=== PATIENT | male | born 1955 | race Caucasian/White ===

== ENCOUNTER 2018-06-20 08:36 | Emergency (ER) | payer OTHER ==
[~2018-06-20] VITALS: Ht 188 cm; Wt 100.0 kg
[~2018-06-20 08:36] MED LIST: ATOR20TA38 PO; HYDR2TAB36 PO; RANI150T5 PO; TAMS-14 PO
[2018-06-20 08:47] VITALS: Ht 188 cm; Wt 100.0 kg
--- NOTE | 2018-06-20 09:10 | ERD ---
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 Patient reports that yesterday he began experiencing mild, crampy and achy left flank pain radiates to the left lower quadrant similar to his previous episodes of renal colic. Mild dysuria and "dark urine" but no polyuria or hematuria. Denies abdominal pain, nausea, vomiting, diarrhea or constipation. No hematemesis, hematochezia or melena. Today he stood up in his cell and walks several feet ROS All systems reviewed and are negative except as per history of present illness. Medications Home Meds Active Scripts Ibuprofen* (Motrin*) 600 Mg Tab, 600 MG PO Q6 PRN for PAIN LEVEL 1-5, #20 TAB Prov:VITALIY JORDAN MD 06/20/18 Ciprofloxacin Hcl* (Ciprofloxacin Hcl*) 500 Mg Tablet, 500 MG PO BID for 7 Days, TAB Prov:VITALIY JORDAN MD 06/20/18 Reported Medications Oxycodone HCl/Acetaminophen (Oxycodone-Acetaminophen 10-325) 1 Each Tablet, 1 EACH PO NEEDED, TAB 06/20/18 Discontinued Reported Medications Tamsulosin Hcl* (Flomax*) 0.4 Mg Cap.er.24h, 0.4 MG PO HS, CAP 01/19/15 Atorvastatin Calcium* (Atorvastatin Calcium*) 20 Mg Tablet, 20 MG PO HS, TAB 01/19/15 Ranitidine Hcl* (Ranitidine Hcl*) 150 Mg Tablet, 150 MG PO Q12, TAB 01/19/15 Discontinued Scripts Hydromorphone Hcl* (Dilaudid*) 2 Mg Tablet, 2 MG PO Q6H PRN for PAIN, #10 TAB Prov:TRUDY MONCADA MD 01/19/15 Hydromorphone Hcl* (Dilaudid*) 2 Mg Tablet, 1 MG PO Q6H PRN for PAIN, #10 TAB Prov:TRUDY MONCADA MD 01/19/15 Allergies Allergies: Coded Allergies: Sulfa (Sulfonamide Antibiotics) (Verified Allergy, Unknown, 06/20/18) sulfamethoxazole (Verified Allergy, Unknown, 06/20/18) trimethoprim (Verified Allergy, Unknown, 06/20/18) PMhx/Soc History of Surgery: Yes (LITHITROPSY, INGUINAL HERNIA REPAIR) Anesthesia Reaction: No Hx Neurological Disorder: No Hx Respiratory Disorders: No Hx Cardiac Disorders: No Hx Psychiatric Problems: No Hx Miscellaneous Medical Probl: Yes (MRSA, KIDNEY STONES ) Hx Alcohol Use: No Hx Substance Use: No Hx Tobacco Use: Yes Smoking Status: Current some day smoker Physical Exam Vitals Vital Signs Date Temp Pulse Resp B/P (MAP) Pulse Ox O2 O2 Flow FiO2 Time Delivery Rate 06/20/18 97.5 74 18 131/79 98 08:47 (96) Physical Exam Const: No acute distress Head: Atraumatic Eyes: Normal Conjunctiva ENT: Normal External Ears, Nose and Mouth. Neck: Full range of motion. No meningismus. Resp: Clear to auscultation bilaterally Cardio: Regular rate and rhythm, no murmurs Abd: Soft, non tender, non distended. Normal bowel sounds Skin: No petechiae or rashes Back: No midline or flank tenderness Ext: No cyanosis, or edema Neur: Awake and alert Psych: Normal Mood and Affect Result Diagram: 06/20/18 0940 06/20/18 0939 Results 24 hrs Laboratory Tests Test 06/20/18 09:39 06/20/18 09:40 Urine Color YELLOW Urine Clarity SLIGHTLY CLOUDY Urine pH 6.0 Urine Specific [place] 1.020 Urine Ketones TRACE mg/dL Urine Nitrite NEGATIVE mg/dL Urine Bilirubin NEGATIVE mg/dL Urine Urobilinogen NEGATIVE mg/dL Urine Leukocyte Esterase TRACE Les/ul Urine Microscopic RBC 112 /HPF Urine Microscopic WBC 16 /HPF Urine Bacteria FEW /HPF Urine Hemoglobin 3+ mg/dL Urine Glucose NEGATIVE mg/dL Urine Total Protein NEGATIVE mg/dl Sodium Level 140 mmol/L Potassium Level 4.5 mmol/L Chloride Level 104 mmol/L Carbon Dioxide Level 29 mmol/L Anion Gap 7 Blood Urea Nitrogen 25 mg/dl Creatinine 1.31 mg/dl Est Glomerular Filtrat Rate mL/min 55 mL/min Glucose Level 91 mg/dl Calcium Level 11.0 mg/dl Troponin I < 0.012 ng/ml White Blood Count 9.4 10^3/ul Red Blood Count 5.66 10^6/ul Hemoglobin 16.3 g/dl Hematocrit 50.1 % Mean Corpuscular Volume 88.5 fl Mean Corpuscular Hemoglobin 28.8 pg Mean Corpuscular Hemoglobin Concent 32.5 g/dl Red Cell Distribution Width 12.5 % Platelet Count 233 10^3/UL Mean Platelet Volume 10.0 fl Immature Granulocytes % 0.100 % Neutrophils % 64.9 % Lymphocytes % 23.9 % Monocytes % 9.2 % Eosinophils % 1.5 % Basophils % 0.4 % Nucleated Red Blood Cells % 0.0 /100WBC Immature Granulocytes # 0.010 10^3/ul Neutrophils # 6.1 10^3/ul Lymphocytes # 2.2 10^3/ul Monocytes # 0.9 10^3/ul Eosinophils # 0.1 10^3/ul Basophils # 0.0 10^3/ul Nucleated Red Blood Cells # 0.0 10^3/ul Current Medications Medications Dose Sig/Mike Start Time Status Last (Trade) Ordered Route PRN Stop Time Admin Dose Reason Admin Ketorolac 15 mg ONCE STAT 06/20/18 DC 06/20/18 Tromethamine IV 09:16 06/20/18 09:43 (Toradol) 09:20 Procedures/MDM DOCUMENTS REVIEWED: ED nurse, EMS report LAB INTERPRETATION: [] EKG: Time: 10:57. Sinus rhythm. Ventricular rate 71. Normal ND and QRS. Incomplete right bundle branch block. No acute ST segment elevation or depression. No ectopy. My Interpretation IMAGING: PROCEDURE: US aorta. CLINICAL INDICATION: Screening for aortic aneurysm TECHNIQUE: Multiple sonographic images of the aorta and iliac vessels was obtained utilizing grayscale, color-flow, compressive sonography and doppler imaging. The images were reviewed on a PACS workstation. COMPARISON: None. FINDINGS: The aorta is normal in caliber with no evidence of abdominal aortic aneurysm. The study is limited due to overlying bowel gas. The proximal aorta measures 1.8 cm. The mid aorta measures 1.6 cm. The distal aorta measures 1.4 cm. The iliac vessels not seen. RPTAT: AA IMPRESSION: No evidence of abdominal aortic aneurysm. .Glenn Banerjee MD, MD Date Time Electronically viewed and signed by .Glenn Banerjee MD, MD on 06/20/2018 10:19 .S/ ED COURSE: [] REEXAMINATION/REEVALUATION: Time: 12:40 MEDICAL DECISION MAKING: []. Stable for discharge with precautionary instructions and outpatient follow-up as counseled. Counseled patient[ and family] regarding diagnostic workup, diagnosis and need for followup. Understands to return to ED if symptoms recur, worsen or any other concerns. Departure Diagnosis: Primary Impression: Syncope, vasovagal Additional Impressions: Left flank pain, chronic H/O renal calculi UTI (urinary tract infection) Urinary tract infection type: acute cystitis Hematuria presence: with hematuria Qualified Codes: N30.01 - Acute cystitis with hematuria Condition: Stable VITALIY JORDAN MD June 20, 2018 09:10
[2018-06-20] MEDS ORDERED: KETOROLAC 15 MG INJ IV STA (09:16)
[2018-06-20] MEDS ORDERED: OXYC-431 PO (12:20)
[2018-06-20] MEDS ORDERED: IBUP-1542 PO (13:06)
[2018-06-20] MEDS ORDERED: CIPR500T4 PO (13:06)
[2018-06-20 13:17] VITALS: BP 124/77; PULSE 72; RESP 20
[2018-06-20] MEDS ORDERED: CIPROFLOXACIN 500 MG TAB PO ONE (13:30)
[2018-06-20] MEDS ORDERED: traMADol 50 MG TAB PO ONE (13:30)
== END 2018-06-20 13:19 ==
LOC: E/R 08:36
DX: R55 Syncope and collapse (principal); F17.210 Nicotine dependence, cigarettes, uncomplicated; N30.01 Acute cystitis with hematuria; Z87.442 Personal history of urinary calculi
CPT/HCPCS: 36415; 76775; 80048; 81001; 84484; 85025; 96374; 99285; J1885; 93005